=== PATIENT | male | born 1980 | race Two or more races ===

== ENCOUNTER 2023-11-21 22:27 | Emergency (ER) | payer BC ==
[~2023-11-21] VITALS: Ht 167.6 cm; Wt 70.5 kg
[2023-11-21 22:40] VITALS: TEMP 97.9
[2023-11-21] MEDS ORDERED: DOLU1TAB2 PO (22:45)
[2023-11-21] MEDS ORDERED: LISI5TAB21 PO (22:45)
[2023-11-21 23:35] LABS: BASOPHILS % (AUTO) 0.9 % (0.0-2.0); EOSINOPHILS % (AUTO) 1.5 % (1.0-6.0); HEMATOCRIT 44.9 % (41-53); HEMOGLOBIN 15.3 g/dL (13.5-17.5); LYMPHOCYTES # (AUTO) 2.3 K/uL (1.0-4.8); LYMPHOCYTES % (AUTO) 34.8 % (22.0-44.0); MEAN CORPUSCULAR HEMOGLOBIN 33.1 pg (26.0-34.0); MEAN CORPUSCULAR HGB CONC 34.1 G/dL (31.0-37.0); MEAN CORPUSCULAR VOLUME 97 fL (80-100); MONOCYTES # (AUTO) 0.6 K/uL (0.1-1.0); NEUTROPHILS # (AUTO) 3.6 K/uL (1.8-7.7); NEUTROPHILS % (AUTO) 53.8 % (40.0-70.0); PLATELET COUNT (AUTO) 259 K/uL (150-450); RED BLOOD CELL COUNT(AUTO) 4.63 MIL/uL (4.50-5.90); RED CELL DISTRIBUTION WIDTH 14.5 % (11.5-14.5); WHITE BLOOD COUNT (AUTO) 6.7 K/uL (4.5-11.0)
[2023-11-21 23:44] LABS: ANION GAP 9 mmol/L (8-16); CARBON DIOXIDE 28 mmol/L (22-29); CHLORIDE 102 mmol/L (98-107); CREATININE 1.27 mg/dL (0.60-1.30); GLOMERULAR FILTR. RATE CALC > 60 mL/min (>60); GLUCOSE,RANDOM 69 mg/dL (70-110); POTASSIUM 4.1 mmol/L (3.5-5.1); SODIUM SERUM 139 mmol/L (136-145); UREA NITROGEN, BLOOD 33 mg/dL (7-18)
[2023-11-21 23:52] LABS: ALANINE AMINOTRANSFERASE 38 U/L (12-78); ALBUMIN 3.8 g/dL (3.4-5.0); ALKALINE PHOSPHATASE 79 U/L (46-116); ASPARTATE AMINOTRANSFERASE 56 U/L (15-37); BILIRUBIN,TOTAL 0.4 mg/dL (0.1-1.0); TOTAL PROTEIN, SERUM 7.7 g/dL (6.4-8.2)
[2023-11-21] MEDS ORDERED: IOHEXOL 350 MG/ML 100 ML VIAL ONE (23:57)
[2023-11-21] MEDS ORDERED: SODIUM CHLORIDE 0.9% 100 ML ONE (23:57)
[2023-11-22 01:30] VITALS: BP 143/99; PULSE 65; RESP 18
[2023-11-22] MEDS ORDERED: ACET-2080 PO (01:30)
[2023-11-22] MEDS ORDERED: METH-659 PO (01:30)
[2023-11-22] MEDS ORDERED: IBUP-1554 PO (01:30)
[2023-11-22] MEDS: METHOCARBAMOL 500 MG TABLET PO ONE (01:34)
[2023-11-22] MEDS: IBUPROFEN 600 MG TABLET PO ONE (01:34)
== END 2023-11-22 01:38 | disposition home or self-care (01) ==
LOC: EMS 22:29
DX: S16.1XXA Strain of muscle, fascia and tendon at neck level, initial encounter (principal); M48.32 Traumatic spondylopathy, cervical region; I10 Essential (primary) hypertension; F12.90 Cannabis use, unspecified, uncomplicated; X58.XXXA Exposure to other specified factors, initial encounter; Y93.89 Activity, other specified; Y92.89 Other specified places as the place of occurrence of the external cause; Y99.8 Other external cause status
CPT/HCPCS: 99285; 70498; 80053; 85025; 36415; Q9967; J7050